=== PATIENT | male | born 1960 | race Caucasian/White ===

== ENCOUNTER 2020-02-26 17:51 | Emergency (ER) | payer MEDICAID ==
[~2020-02-26] VITALS: Ht 170.2 cm; Wt 68.0 kg
--- NOTE | 2020-02-26 17:58 | Emergency Room Report ---
History of Present Illness General Source: Patient Present Illness HPI Patient is a 60-year-old male brought in by [facility] after increased right-sided knee pain. Patient had recent fall approximately 2 weeks ago. He was sent in from [facility]. Apparently had previous x-ray imaging which did not show fracture. Persistent pain to the knee.Patient had reported pain to the right knee above the kneecap. Reports having some mild pain to the right ankle. Allergies: Coded Allergies: No Known Allergies (Unverified , 02/26/20) Patient History Past Medical History: see triage record Reviewed Nursing Documentation: PMH: Agreed; PSxH: Agreed Review of Systems All Other Systems: negative except mentioned in HPI Physical Exam Sp02 EP Interpretation: reviewed, normal General Appearance: normal inspection, well appearing, no apparent distress, alert, GCS 15 Head: atraumatic ENT: normal ENT inspection, hearing grossly normal, normal voice Neck: normal inspection, full range of motion, supple, no bony tend Respiratory: normal inspection, lungs clear, normal breath sounds, no respiratory distress, no retraction, no wheezing Cardiovascular #1: regular rate, rhythm, no edema Gastrointestinal: normal inspection, normal bowel sounds, non tender, soft, no guarding, no hernia Genitourinary: no CVA tenderness Musculoskeletal: normal inspection, back normal, other - soft tissue swelling to right knee Neurologic: alert, responsive, speech normal, normal inspection Psychiatric: normal inspection, judgement/insight normal, mood/affect normal Medical Decision Making Diagnostic Impression: Primary Impression: Right knee pain ER Course Patient presented for right knee pain. Differential diagnosis include was not limited to fracture, contusion, knee sprain, arthritis among others. X-ray imaging was ordered to patient's reported recent trauma. Patient was noted to have some. Mild soft tissue swelling to the suprapatellar area as well as to the infrapatellar area.X-ray imaging showed no evidence of acute fracture. Patient will be sent back to his facility.Patient is given pain medications for his knee. Further management per primary care physician. No palpable cord or calf tenderness tenderness and normal pulses to the foot. Status: improved Disposition: HOME, SELF-CARE Condition: Stable Kevin Hawkins MD February 26, 2020 17:58
--- NOTE | 2020-02-26 18:00 | NUR ---
ED Nurse Note: Patient brought into ED from [facility] for right knee pain due to fall. patient sustained fall and got an xray done on 02/22/20 which did not show fracture. patient is alert awake able to express his needs, in no acute distress, no shortness of breath patient placed on a hospital gown.
--- NOTE | 2020-02-26 18:11 | NUR ---
ED Nurse Note: xray at bedside.
[2020-02-26] MEDS ORDERED: DOCUSATE SODIU100 MG ORAL (18:15)
[2020-02-26] MEDS ORDERED: ACETAMINOPHEN325 M1 ORAL (18:15)
[2020-02-26] MEDS ORDERED: FISH OIL CAP1000 MG ORAL (18:15)
[2020-02-26] MEDS ORDERED: HYDRALAZINE HCL25 M1 ORAL (18:15)
[2020-02-26] MEDS ORDERED: ATORVASTATIN CA40 MG ORAL (18:15)
[2020-02-26] MEDS ORDERED: ASPIRIN81 MG ORAL (18:15)
[2020-02-26] MEDS ORDERED: TRAMADOL HCL50 MG ORAL (18:15)
[2020-02-26] MEDS ORDERED: ISOSORBIDE MONO30 M1 PO (18:15)
[2020-02-26] MEDS ORDERED: GABAPENTIN100 MG ORAL (18:15)
[2020-02-26] MEDS ORDERED: NITRO0.4 SL (18:15)
[2020-02-26] MEDS ORDERED: PANTOPRAZOLE SO40 MG ORAL (18:15)
[2020-02-26] MEDS ORDERED: cholecalciferol PO (18:15)
[2020-02-26] MEDS ORDERED: AMLODIPINE BESYL5 MG ORAL (18:15)
[2020-02-26] MEDS ORDERED: MULTIVITAMINS1 EAC8 ORAL (18:15)
[2020-02-26] MEDS ORDERED: CARVEDILOL12.5 MG ORAL (18:15)
[2020-02-26] MEDS ORDERED: ZOFRAN4 M3 ORAL (18:15)
--- NOTE | 2020-02-26 18:36 | Diagnostic Imaging Report ---
EXAM: XR Right Knee, 3 Views CLINICAL HISTORY: PAIN TECHNIQUE: Three views of the right knee. COMPARISON: No relevant prior studies available. FINDINGS: Bones/joints: No acute displaced fracture or dislocation. No significant joint effusion. Soft tissues: Unremarkable. IMPRESSION: No acute displaced fracture or dislocation.
--- NOTE | 2020-02-26 19:18 | NUR ---
HAND-OFF: Report given to Sophia Cortez RN.
--- NOTE | 2020-02-26 19:25 | NUR ---
ED Nurse Note: Recieved report to resume care, pt in bed awake and alert, has been discharged and waiting for transport back to facility. nad noted, will continue to monitor while waiting for ambulance ETA.
--- NOTE | 2020-02-26 19:32 | NUR ---
SPOKE WITH PRESTON FROM [facility], INFORMED THAT THE PATIENT WILL BE TRANSFERRED BACK
[2020-02-26 21:10] VITALS: BP 119/71
--- NOTE | 2020-02-26 21:10 | NUR ---
ER DISCHARGE NOTE: Patient is cleared to be discharged per ERMD, pt is aox4, on room air, with stable vital signs. pt was given dc and prescription instructions, pt was able to verbalize understanding, pt id band removed without complications. pt is able to ambulate with steady gait. pt took all belongings. pt taken via ambulance, [id number], all belongings with pt.
[2020-02-26 21:11] VITALS: BP 119/71
== END 2020-02-26 21:13 | disposition home or self-care (01) ==
LOC: EDBD 17:51 → EMR 18:20
DX: M25.561 Pain in right knee (principal); M25.571 Pain in right ankle and joints of right foot
CPT/HCPCS: 73564; Z7502; 99283